=== PATIENT | female | born 1990 | race Caucasian/White ===

== ENCOUNTER 2020-01-01 16:11 | Emergency (ER) | payer OTHER ==
[2020-01-01 16:38] LABS: BILIRUBIN,URINE NEGATIVE (NEGATIVE); GLUCOSE, URINE (UA) NEGATIVE (NEGATIVE); KETONES,URINE (UA) NEGATIVE (NEGATIVE); LEUKOCYTE ESTERASE, URINE NEGATIVE (NEGATIVE); NITRITE,URINE NEGATIVE (NEGATIVE); OCCULT BLOOD,URINE NEGATIVE (NEGATIVE); PROTEIN,URINE NEGATIVE (NEGATIVE); UROBILINOGEN,URINE 0.2 (NORMAL) E.U./dL (NORMAL)
[2020-01-01 16:39] LABS: BASOPHILS # (AUTO) 0.1 10^3/uL (0.0-0.1); BASOPHILS % (AUTO) 0.8 %; EOSINOPHILS # (AUTO) 0.2 10^3/uL (0.0-0.7); EOSINOPHILS % (AUTO) 1.7 %; HGB - HEMOGLOBIN 14.5 g/dL (12.0-16.0); LYMPHOCYTES # (AUTO) 2.2 10^3/uL (1.5-3.5); LYMPHOCYTES % (AUTO) 24.6 %; MEAN CORPUSCULAR HEMOGLOBIN 32.2 pg (27.0-31.0); MEAN CORPUSCULAR HGB CONC 34.4 g/dL (32.0-36.0); MEAN CORPUSCULAR VOLUME 93.6 fL (81.0-99.0); MEAN PLATELET VOLUME 9.6 fL (7.9-10.8); MONOCYTES # (AUTO) 0.7 10^3/uL (0.0-1.0); MONOCYTES % (AUTO) 7.7 %; NEUTROPHILS # (AUTO) 5.7 10^3/uL (1.5-6.6); NEUTROPHILS % (AUTO) 64.9 %; PLT - PLATELET COUNT 203 10^3/uL (130-450); RED CELL DISTRIBUTION WIDTH 12.6 % (12.0-15.0); WHITE BLOOD COUNT 8.8 x10^3/uL (4.8-10.8)
[2020-01-01 16:41] LABS: CLARITY,URINE CLEAR (CLEAR)
[2020-01-01 16:42] LABS: HCG UR QUAL POSITIVE
[2020-01-01 16:51] LABS: ALBUMIN 4.5 g/dL (3.2-5.5); ALBUMIN/GLOBULIN RATIO 1.6 (1.0-2.2); BILIRUBIN,TOTAL 0.4 mg/dL (0.2-1.0); CALCIUM 9.1 mg/dL (8.5-10.3); CREATININE 0.5 mg/dL (0.4-1.0); TOTAL PROTEIN 7.4 g/dL (6.7-8.2)
--- NOTE | 2020-01-01 17:58 | ED Physician Documentation ---
PD HPI FEMALE - Stated complaint Stated Complaint: ABD CRAMPING 6 WEEKS PREG - Chief complaint Chief Complaint: Abd Pain - History obtained from History obtained from: Patient - Additional information Additional information: Patient comes emergency department complaining of right pelvic pain. She states she is about 6 weeks . She is not bleeding and has noticed only a mild amount of clear discharge from her vagina. She states that she has a history of tubal ligation in 2011 which was reversed within the last year because she and her significant other wanted to try to conceive. She states she has had 2 other successful pregnancies prior to her tubal ligation. Patient states that only her right tube is patent and that the left one never did reopen. She states that her last menstrual period was November 19. Patient states she is otherwise healthy. She denies any vomiting though she has been mildly nauseated. No dysuria. No other complaints at this time Review of Systems Ten Systems: 10 systems reviewed and negative Constitutional: reports: Reviewed and negative Eyes: reports: Reviewed and negative Ears: reports: Reviewed and negative Nose: reports: Reviewed and negative Throat: reports: Reviewed and negative Cardiac: reports: Reviewed and negative Respiratory: reports: Reviewed and negative GI: reports: Abdominal Pain, Nausea : reports: Missed period, Now EGA Skin: reports: Reviewed and negative Musculoskeletal: reports: Reviewed and negative Neurologic: reports: Reviewed and negative Psychiatric: reports: Reviewed and negative Endocrine: reports: Reviewed and negative Immunocompromised: reports: Reviewed and negative PD PAST MEDICAL HISTORY - Past Medical History Past Medical History: No - Past Surgical History Past Surgical History: Yes 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, Other - Allergies Allergies/Adverse Reactions: Allergies Allergy/AdvReac Type Severity Reaction Status Date / Time No Known Drug Allergies Allergy Verified 01/01/20 16:19 - Social History Does the pt smoke?: No Smoking Status: Never smoker Does the pt drink ETOH?: No Does the pt have substance abuse?: No - Immunizations Immunizations are current?: Yes PD ED PE NORMAL - Vitals Vital signs reviewed: Yes - General General: Alert and oriented X 3, No acute distress - HEENT HEENT: Atraumatic, PERRL, EOMI, Moist mucous membranes - Neck Neck: Supple, no meningeal sign - Cardiac Cardiac: RRR, No murmur, Strong equal pulses - Respiratory Respiratory: No respiratory distress, Clear bilaterally - Abdomen Abdomen: Soft, Non distended, Other (Patient has tenderness in her right pelvis. No rebound or guarding.) - Derm Derm: Warm and dry - Extremities Extremities: No deformity - Neuro Neuro: Alert and oriented X 3 - Psych Psych: Normal mood, Normal affect Results - Vitals Vitals: Vital Signs - 24 hr 01/01/20 01/01/20 01/01/20 16:19 18:13 19:47 Temperature 36.5 C Heart Rate 62 60 63 Respiratory 14 15 16 Rate Blood Pressure 130/73 116/77 100/72 O2 Saturation 100 100 99 01/01/20 20:23 Temperature Heart Rate 63 Respiratory 16 Rate Blood Pressure 106/82 H O2 Saturation 99 Oxygen O2 Source Room air - Labs Labs: Laboratory Tests 01/01/20 01/01/20 01/01/20 16:33 16:33 16:33 WBC 8.8 RBC 4.50 Hgb 14.5 Hct 42.1 MCV 93.6 MCH 32.2 H MCHC 34.4 RDW 12.6 Plt Count 203 MPV 9.6 Neut # (Auto) 5.7 Lymph # (Auto) 2.2 [place] # (Auto) 0.7 Eos # (Auto) 0.2 Baso # (Auto) 0.1 Absolute Nucleated RBC 0.00 Nucleated RBC % 0.0 Sodium 136 Potassium 3.5 Chloride 104 Carbon Dioxide 24 Anion Gap 8.0 BUN 9 Creatinine 0.5 Estimated GFR (MDRD) 144 Glucose 96 Calcium 9.1 Total Bilirubin 0.4 AST 16 ALT 16 Alkaline Phosphatase 45 Total Protein 7.4 Albumin 4.5 Globulin 2.9 Albumin/Globulin Ratio 1.6 Lipase 40 HCG, Quant 02327.00 Urine Color Urine Clarity Urine pH Ur Specific [place] Urine Protein Urine Glucose (UA) Urine Ketones Urine Occult Blood Urine Nitrite Urine Bilirubin Urine Urobilinogen Ur Leukocyte Esterase Ur Microscopic Review Urine Culture Comments Urine HCG, Qual 01/01/20 01/01/20 16:35 16:35 WBC RBC Hgb Hct MCV MCH MCHC RDW Plt Count MPV Neut # (Auto) Lymph # (Auto) [place] # (Auto) Eos # (Auto) Baso # (Auto) Absolute Nucleated RBC Nucleated RBC % Sodium Potassium Chloride Carbon Dioxide Anion Gap BUN Creatinine Estimated GFR (MDRD) Glucose Calcium Total Bilirubin AST ALT Alkaline Phosphatase Total Protein Albumin Globulin Albumin/Globulin Ratio Lipase HCG, Quant Urine Color YELLOW Urine Clarity CLEAR Urine pH 6.0 Ur Specific [place] <=1.005 <=1.005 Urine Protein NEGATIVE Urine Glucose (UA) NEGATIVE Urine Ketones NEGATIVE Urine Occult Blood NEGATIVE Urine Nitrite NEGATIVE Urine Bilirubin NEGATIVE Urine Urobilinogen 0.2 (NORMAL) Ur Leukocyte Esterase NEGATIVE Ur Microscopic Review NOT INDICATED Urine Culture Comments NOT INDICATED Urine HCG, Qual POSITIVE - Rads (name of study) OB US Radiology: Final report received, See rad report PD MEDICAL DECISION MAKING - ED course Complexity details: reviewed results, re-evaluated patient, considered differential, d/w patient ED course: Patient was worked up with serum Quantitative hCG and with pelvic ultrasound. She was found to have a viable 6-wk IUP. I have discussed the findings with the pt. She already has OB follow-up, and should keep this. Her R pelvic pain may be due to adhesions from her previous surgeries. No emergent cause of it has been found today. We have discussed the usual indications for return. Departure - Departure Disposition: 01 Home, Self Care Clinical Impression: , Abdominal pain Condition: Good Instructions: ED Pelvic Pain UKO, ED Care Comments: Your ultrasound shows a live, 6-week fetus in your uterus. The baby has a good heart rate at this time, and there is no evidence of any problem with the . Is not clear what is causing your right-sided pelvic pain, but this may be due to scar tissue from your various procedures, along with traction from your uterus which is becoming increasingly heavy. Please follow-up with your PHYSICIAN UNDERWRITER, as you are scheduled to do. Discharge Date/Time: 01/01/20 20:23
--- NOTE | 2020-01-01 20:10 | Ultrasound Report ---
Reason: Evaluation ER Procedure Date: 01/01/2020 Accession Number: [id number] / [id number] Procedure: US - OB First Trimester CPT Code: Final Report FULL RESULT: EXAM: FIRST TRIMESTER OBSTETRIC ULTRASOUND (Less than 11 weeks) EXAM DATE: 01/01/2020 07:51 PM. CLINICAL HISTORY: Writing so pain. History of tubal reversal. LMP: 11/19/2019. COMPARISONS: None. TECHNIQUE: Transabdominal and transvaginal ultrasound examination with static image documentation. CLINICAL DATES: EGA 6 weeks 1 day with SANJEEV 08/25/2020 based on LMP. ASSESSMENT: Gestational Sac: Single intrauterine. Mean gestational sac diameter: 19 mm = 6 weeks 6 days. Embryo: CRL (crown-rump length) 4 mm = 6 weeks 0 days. Cardiac activity: 113 beats per minute. Yolk sac: 3 mm. Amniotic fluid: Not accurately assessed at this gestational age. Early placenta: Not visible at this gestational age. Other: Small subchorionic hemorrhage.. MATERNAL STRUCTURES: Uterus: Anteverted. Unremarkable. Cervix: Closed. Right Ovary/Adnexa: The ovary measures 3.6 x 2.5 x 3.4 cm, volume 16.1 cc. Unremarkable. Left Ovary/Adnexa: The ovary measures 3.1 x 2.6 x 3.8 cm, volume 15.6 cc. Left corpus luteal cyst. Free Fluid: None. Other: None. IMPRESSION: 1. Single viable intrauterine at EGA 6 weeks 0 days with SANJEEV 08/26/2020 based on crown-rump length, which is concordant with clinical dates. 2. Assigned dating is SANJEEV 08/25/2020 based on LMP. 3. Small subchorionic hemorrhage. RADIA
[2020-01-01 20:24] VITALS: BP 106/82
== END 2020-01-01 20:23 | disposition home or self-care (01) ==
LOC: ED 16:11
DX: O99.89 Other specified diseases and conditions complicating pregnancy, childbirth and the puerperium (principal); R10.9 Unspecified abdominal pain; Z3A.01 Less than 8 weeks gestation of pregnancy
CPT/HCPCS: 36415; 76801; 76817; 80053; 81001; 81003; 81025; 83690; 84702; 85025; 87086; 99284

== ENCOUNTER 2020-02-25 12:23 | Outpatient (CLI) | payer OTHER ==
[2020-02-25 17:45] LABS: BASOPHILS % (AUTO) 0.6 %; EOSINOPHILS # (AUTO) 0.1 10^3/uL (0.0-0.7); EOSINOPHILS % (AUTO) 1.6 %; LYMPHOCYTES # (AUTO) 1.4 10^3/uL (1.5-3.5); LYMPHOCYTES % (AUTO) 20.4 %; MEAN CORPUSCULAR HEMOGLOBIN 30.8 pg (27.0-31.0); MEAN CORPUSCULAR HGB CONC 32.4 g/dL (32.0-36.0); MEAN PLATELET VOLUME 10.6 fL (7.9-10.8); MONOCYTES # (AUTO) 0.5 10^3/uL (0.0-1.0); MONOCYTES % (AUTO) 6.9 %; NEUTROPHILS # (AUTO) 4.9 10^3/uL (1.5-6.6); NEUTROPHILS % (AUTO) 70.1 %; PLT - PLATELET COUNT 213 10^3/uL (130-450); RED BLOOD COUNT 4.22 10^6/uL (4.20-5.40); RED CELL DISTRIBUTION WIDTH 13.3 % (12.0-15.0)
== END 2020-02-25 23:59 | disposition home or self-care (01) ==
LOC: LAB.WCP 12:23
PROVIDERS: ATTEND Advanced Practice Midwife
DX: Z34.80 Encounter for supervision of other normal pregnancy, unspecified trimester (principal)
CPT/HCPCS: 36415; 85025

== ENCOUNTER 2020-03-27 09:54 | Outpatient (CLI) | payer OTHER ==
--- NOTE | 2020-03-27 23:01 | Ultrasound Report ---
Reason: SUPERVISION NORMAL Procedure Date: 03/27/2020 Accession Number: [id number] / [id number] Procedure: US - OB Detailed Eval CPT Code: Final Report FULL RESULT: PROCEDURE: OB Detailed Eval INDICATIONS: SUPERVISION NORMAL OUTSIDE/PRIOR DATING DATA: Last menstrual period (LMP): 11/19/2019. LMP-based estimated date of delivery (SANJEEV): 08/25/2020. First dating scan (date and location): 01/01/2020. Estimated date of delivery (SANJEEV) from first dating scan: 08/26/2020. TECHNIQUE: Real-time scanning was performed of the fetus, with image documentation and biometric measurements. Endovaginal scanning: Not performed. COMPARISON: 01/01/2020. FINDINGS: General: A single living intrauterine gestation is present. Presentation: Variable. Placenta: Placental position is posterior, without previa. Amniotic fluid index: 13.9 cm, normal for gestational age. heart rate: 132 beats per minute. Maternal cervical canal: 4.4 cm long; normal length is 2.5 cm or more. biometrics: Biparietal diameter: 4.2 cm. 18 weeks 5 days. Head circumference: 15.6 cm. 18 weeks 3 days. Abdominal circumference: 13.2 cm. 18 weeks 5 days. Femur length: 2.7 cm. 18 weeks 2 days. Estimated gestational age from initial scan: 18 weeks 3 days. Composite gestational age from present scan: 18 weeks 3 days. Estimated weight and percentile: 243 g, 50th percentile. Measurement variability in biometric dating: +/- 10 days from 12-20 weeks gestation, +/- 2 weeks from 20-30 weeks gestation, +/- 3 weeks at 30 weeks gestation or later. Anatomic survey: Neuro: Ventricles are normal at less than 10 mm. Cisterna magna is normal at 3-11 mm. Cerebellum is normal in size and morphology. Bilateral choroid plexus cysts measuring 4 mm. Nuchal skin fold: Normal at less than 6 mm between 14 and 20 weeks gestational age. Face: Nose and lips, facial profile are normal. Spine: No evidence for spina bifida. Heart: 4-chambered heart is present, with normal ventricular outflow tracts. Diaphragm: Diaphragm is intact. Stomach: Left-sided stomach is present. Kidneys: No hydronephrosis. Normal is less than 5 mm in 2nd trimester, less than 7 mm in 3rd trimester. Cord: 3 vessel cord has orthotopic insertion. Bladder: Normal in size. Extremities: All 4 extremities are visualized. Small left ovarian cyst. IMPRESSION: 1. [place] living intrauterine at 18 weeks 3 days based on today's ultrasound. This is concordant with the first trimester ultrasound. There is expected interval growth. 2. Normal placenta and amniotic fluid. 3. Small bilateral choroid plexus cysts. This is a soft marker for aneuploidy. Complete anatomic survey. Reviewed by: Rehan Sanchez MD on 03/27/2020 11:00 PM PDT Approved by: Rehan Sanchez MD on 03/27/2020 11:00 PM PDT Station ID: [id number]
== END 2020-03-27 09:55 | disposition home or self-care (01) ==
LOC: DI 09:54
PROVIDERS: ATTEND Advanced Practice Midwife
DX: O35.0XX1 Maternal care for (suspected) central nervous system malformation in fetus, fetus 1 (principal)
CPT/HCPCS: 76811

== ENCOUNTER 2020-05-08 14:17 | Outpatient (CLI) | payer OTHER ==
[2020-05-08 14:39] VITALS: BP 119/68
[2020-05-08 14:41] LABS: BILIRUBIN,URINE NEGATIVE (NEGATIVE); GLUCOSE, URINE (UA) NEGATIVE (NEGATIVE); KETONES,URINE (UA) NEGATIVE (NEGATIVE); LEUKOCYTE ESTERASE, URINE NEGATIVE (NEGATIVE); NITRITE,URINE NEGATIVE (NEGATIVE); OCCULT BLOOD,URINE NEGATIVE (NEGATIVE); PROTEIN,URINE NEGATIVE (NEGATIVE); UROBILINOGEN,URINE 0.2 (NORMAL) E.U./dL (NORMAL)
[2020-05-08 14:47] LABS: BACTERIA,URINE None Seen /HPF (None Seen); CLARITY,URINE CLEAR (CLEAR); RBC,URINE None Seen /HPF (0-5); SQUAMOUS EPITHELIAL CELL,UR NONE SEEN (<= Few)
--- NOTE | 2020-05-08 17:21 | Ultrasound Report ---
PROCEDURE: OB Limited INDICATIONS: decrease FM OUTSIDE/PRIOR DATING DATA: Last menstrual period (LMP): 11/20/2019. LMP-based estimated date of delivery (SANJEEV): 08/25/2020. First dating scan (date and location): 01/01/2020. Estimated date of delivery (SANJEEV) from first dating scan: 08/26/2020. TECHNIQUE: Real-time scanning was performed of the fetus, with image documentation. COMPARISON: OB ultrasound 03/27/2020 FINDINGS: A single living intrauterine gestation is present. Presentation: Breech Placenta: Placental position is posterior, without previa. Amniotic fluid index: 18.0 cm, 77th percentile for gestational age. Largest pocket 5.1 cm heart rate: 136 beats per minutes. Maternal cervical canal: 4.1 cm long; normal length is 2.5 cm or more. Estimated gestational age from initial scan: 24 weeks 3 days. IMPRESSION: 1. Single live intrauterine as above with good movement. Reviewed by: Giselle Agarwal MD on 05/08/2020 5:19 PM PDT Approved by: Giselle Agarwal MD on 05/08/2020 5:19 PM PDT Station ID: [id number]
--- NOTE | 2020-05-08 23:55 | PROVIDER PROGRESS NOTE ---
Subjective - Subjective Subjective: Patient asked to come in when she called clinic with lower abdominal cramping. Cramping worsens when she stands. Is constant. No contractions. No bleeding or leaking of water. Has had less movement than typical. AVSS Alert, NAD Abd soft, nt/nd SVE closed/thick/high FFN neg UA neg Wet mount: clue cells MAXIMO: normal NST category 1, toco neg A/P: 29yo in 2nd trimester with BV and likely associated cramping. Will treat with po metronidazole. Call/RTC PRN worsening. Also with chronic low back pain in the past 2w--discussed can do trial of PT if she'd like. Chronic constipation, recommended starting colace. Follow up routine appointment unless getting worse. wellbeing reassuring with normal NST/MAXIMO. Objective - Lab Results Other Labs: Lab Results x24hrs 05/08/20 05/08/20 Range/Units 15:03 14:33 Urine Color LT. YELLOW Urine Clarity CLEAR (CLEAR) Urine pH 7.0 (5.0-7.5) PH Ur Specific [place] 1.010 (1.002-1.030) Urine Protein NEGATIVE (NEGATIVE) mg/dL Urine Glucose (UA) NEGATIVE (NEGATIVE) mg/dL Urine Ketones NEGATIVE (NEGATIVE) mg/dL Urine Occult Blood NEGATIVE (NEGATIVE) Urine Nitrite NEGATIVE (NEGATIVE) Urine Bilirubin NEGATIVE (NEGATIVE) Urine Urobilinogen 0.2 (NORMAL) (NORMAL) E.U./dL Ur Leukocyte Esterase NEGATIVE (NEGATIVE) Urine RBC None Seen (0-5) /HPF Urine WBC 0-3 (0-5) /HPF Ur Squamous Epith Cells NONE SEEN (<= Few) Urine Bacteria None Seen (None Seen) /HPF Urine Culture Comments NOT INDICATED Fibronectin NEGATIVE (NEGATIVE)
== END 2020-05-08 17:23 | disposition home or self-care (01) ==
LOC: WFO 14:17 → FBP 14:18 → WFO 17:23
PROVIDERS: ATTEND Obstetrics & Gynecology
DX: O23.592 Infection of other part of genital tract in pregnancy, second trimester (principal); B96.89 Other specified bacterial agents as the cause of diseases classified elsewhere; O36.8120 Decreased fetal movements, second trimester, not applicable or unspecified
CPT/HCPCS: 76815; 81001; 82731; 87086; 87210; 99214

== ENCOUNTER 2020-06-09 19:04 | Outpatient (CLI) | payer OTHER | END 2020-06-09 19:05 | disposition home or self-care (01) | LOC: DI 19:04 | PROVIDERS: ATTEND Advanced Practice Midwife | DX: Z34.80 Encounter for supervision of other normal pregnancy, unspecified trimester (principal) | CPT/HCPCS: 76816 ==

== ENCOUNTER 2020-07-22 11:43 | Outpatient (CLI) | payer OTHER ==
[2020-07-22 12:44] LABS: RUPTURE OF MEMBRANES PLUS NEGATIVE (NEGATIVE)
[2020-07-22 13:16] VITALS: BP 113/54
[2020-07-22 13:16] LABS: BILIRUBIN,URINE NEGATIVE (NEGATIVE); GLUCOSE, URINE (UA) NEGATIVE (NEGATIVE); KETONES,URINE (UA) NEGATIVE (NEGATIVE); LEUKOCYTE ESTERASE, URINE NEGATIVE (NEGATIVE); NITRITE,URINE NEGATIVE (NEGATIVE); OCCULT BLOOD,URINE NEGATIVE (NEGATIVE); PH,URINE 6.5 PH (5.0-7.5); PROTEIN,URINE NEGATIVE (NEGATIVE); UROBILINOGEN,URINE 0.2 (NORMAL) E.U./dL (NORMAL)
--- NOTE | 2020-07-22 13:31 | PROVIDER PROGRESS NOTE ---
- HPI Chief Complaint: Leakage of vaginal fluid Current : Current EDU 08/25/20 Gestation 35 Weeks and 1 Days 5 Para 2 Vital Signs Temperature 37.2 C 07/22/20 11:54 Heart Rate 81 07/22/20 11:54 Respiratory Rate 17 07/22/20 11:54 Blood Pressure 110/96 H 07/22/20 11:54 O2 Saturation 99 07/22/20 11:54 Temperature 37.2 C 07/22/20 11:54 Heart Rate 81 07/22/20 11:54 Respiratory Rate 17 07/22/20 11:54 Blood Pressure 113/54 L 07/22/20 12:17 O2 Saturation 99 07/22/20 11:54 - Procedures OB Procedure Performed: NST - Plan Plan: S: Joy presents to L&D with reports of a leaking of clear thin fluid since 1999 yesterday. She Also reports ongoing gushes with voiding, not requiring a pad. She reports 7/10 pain with low menstrual like cramps, but no contractions "Maybe Yonas Mcmullen." She does report ongoing nausea/heartburn, but reports is at her baseline. O: 30yo at 35.0wks gestation No obvious distress FHTs moderate variability, accels, no decels Uterus soft, nontender, no contractions ROM+ negative UA- sent Affirm-sent FFN- sent A: 30yo at 35.0wks gestation, without rupture of membranes Not in labor. FHTs Cat I Rule out other source of infection/cramping P:Discharge to home with labor precautions Follow up at regularly scheduled visits
[2020-07-22 13:35] LABS: CLARITY,URINE CLEAR (CLEAR)
[2020-07-22 20:22] LABS: CANDIDA GROUP DNA NEGATIVE (NEGATIVE); CANDIDA KRUSEI DNA NEGATIVE (NEGATIVE); TRICHOMONAS VAGINALIS DNA NEGATIVE (NEGATIVE)
== END 2020-07-22 13:28 | disposition home or self-care (01) ==
LOC: WFO 11:43 → FBP 11:45 → WFO 13:28
PROVIDERS: ATTEND Advanced Practice Midwife
DX: O99.89 Other specified diseases and conditions complicating pregnancy, childbirth and the puerperium (principal); N89.8 Other specified noninflammatory disorders of vagina; Z3A.35 35 weeks gestation of pregnancy; R10.30 Lower abdominal pain, unspecified; R11.0 Nausea; R12 Heartburn
CPT/HCPCS: 81001; 81003; 82731; 84112; 87086; 87661; 87801; 99214

== ENCOUNTER 2020-07-27 08:00 | Outpatient (CLI) | payer OTHER | END 2020-07-27 23:59 | disposition home or self-care (01) | LOC: LAB.R 08:00 | PROVIDERS: ATTEND Advanced Practice Midwife | DX: Z36.85 Encounter for antenatal screening for Streptococcus B (principal); Z34.80 Encounter for supervision of other normal pregnancy, unspecified trimester | CPT/HCPCS: 87797 ==

== ENCOUNTER 2020-08-24 10:04 | Outpatient (CLI) | payer OTHER ==
--- NOTE | 2020-08-24 11:09 | Labor Flowsheet ---
Labor Flowsheet Datetime Report Generated by CPN: 08/24/2020 11:09 Datetime: 08/24/2020 10:36 VITAL SIGNS NBP Sys/Brionna/Mean (mmHg): 135 : 66 : 92 Pulse: 91 Datetime: 08/21/2020 19:25 SpO2 (%): 99 Datetime: 08/21/2020 12:09 Membranes Ruptured Date/Time: 08/21/2020 11:17 Amniotic Fluid Odor: Normal Datetime: 08/21/2020 12:01 COMMUNICATION LaborFlag: Labor Datetime: 08/21/2020 11:39 MEDICATIONS Medication Comments: methergine 0.2mg given IM Right vastus lateralis Datetime: 08/21/2020 11:18 STAGE 2 Pushing: Involuntary Pushing Pushing Progress: Presenting Part Visible Stage 2 Comments: Rapid delivery Datetime: 08/21/2020 11:16 VAGINAL EXAM Membrane Status: Ruptured Membranes Rupture Method: Spontaneous Amniotic Fluid Color: Heavy Meconium Amniotic Fluid Amount: Large Membrane Comments: SROM at delivery of body
== END 2020-08-24 10:45 | disposition home or self-care (01) ==
LOC: WFO 10:04 → FBP 10:09 → WFO 10:45
PROVIDERS: ATTEND Pediatrics
DX: O92.79 Other disorders of lactation (principal)
CPT/HCPCS: 99402

== ENCOUNTER 2021-10-05 11:19 | Outpatient (CLI) | payer OTHER ==
--- NOTE | 2021-10-05 14:32 | Ultrasound Report ---
PROCEDURE: OB First Trimester INDICATIONS: SUPERVISION , NORMAL OUTSIDE/PRIOR DATING DATA: Last menstrual period (LMP): 07/25/2021. LMP-based estimated date of delivery (SANJEEV): 05/01/2022. First dating scan (date and location): 10/05/2021. Estimated date of delivery (SANJEEV) from first dating scan: 05/03/2022. TECHNIQUE: Real-time scanning was performed of the fetus and maternal pelvic organs, with image documentation. COMPARISON: None. FINDINGS: Embryo: Intrauterine gestational sac and yolk sac, and pole are seen. The crown-rump length me asures 3.1 cm, consistent with a gestational age of 10 weeks 0 days. Heart rate: 173 bpm. Measurement variability in dating: +/- 4 weeks by LMP, +/- 7 days by mean sac diameter (use before 6 weeks gestation if crown-rump length not able to be measured), +/- 5 days by crown-rump length (6-12 weeks gestation). Maternal organs: Ovaries are within normal limits. IMPRESSION: Single live intrauterine with measurements resulting in an estimated gestational age of 10 weeks 0 days, giving an ultrasound SANJEEV of 05/03/2022. Reviewed by: Juliano Garcia MD on 10/05/2021 2:31 PM PST Approved by: Juliano Garcia MD on 10/05/2021 2:31 PM PST Station ID: [id number]
== END 2021-10-05 11:20 | disposition home or self-care (01) ==
LOC: DI 11:19
PROVIDERS: ATTEND Nurse Practitioner Obstetrics & Gynecology
DX: Z34.81 Encounter for supervision of other normal pregnancy, first trimester (principal); Z3A.10 10 weeks gestation of pregnancy; Z36.89 Encounter for other specified antenatal screening
CPT/HCPCS: 36415; 81001; 85025; 86592; 86762; 86787; 86803; 86850; 86900; 86901; 87086; 87340; 87389

== ENCOUNTER 2021-10-05 11:49 | Outpatient (CLI) | payer OTHER ==
[2021-10-05 12:11] LABS: BASOPHILS # (AUTO) 0.1 10^3/uL (0.0-0.1); BASOPHILS % (AUTO) 0.9 %; EOSINOPHILS # (AUTO) 0.1 10^3/uL (0.0-0.7); EOSINOPHILS % (AUTO) 0.9 %; HCT - HEMATOCRIT 43.9 % (37.0-47.0); HGB - HEMOGLOBIN 14.6 g/dL (12.0-16.0); LYMPHOCYTES # (AUTO) 1.7 10^3/uL (1.5-3.5); LYMPHOCYTES % (AUTO) 26.5 %; MEAN CORPUSCULAR HEMOGLOBIN 30.5 pg (27.0-31.0); MEAN CORPUSCULAR HGB CONC 33.3 g/dL (32.0-36.0); MEAN CORPUSCULAR VOLUME 91.8 fL (81.0-99.0); MEAN PLATELET VOLUME 10.5 fL (7.9-10.8); MONOCYTES # (AUTO) 0.4 10^3/uL (0.0-1.0); MONOCYTES % (AUTO) 6.2 %; NEUTROPHILS # (AUTO) 4.3 10^3/uL (1.5-6.6); NEUTROPHILS % (AUTO) 65.3 %; PLT - PLATELET COUNT 220 10^3/uL (130-450); RED BLOOD COUNT 4.78 10^6/uL (4.20-5.40); RED CELL DISTRIBUTION WIDTH 13.4 % (12.0-15.0); WHITE BLOOD COUNT 6.6 x10^3/uL (4.8-10.8)
[2021-10-05 13:09] LABS: BILIRUBIN,URINE NEGATIVE (NEGATIVE); GLUCOSE, URINE (UA) NEGATIVE (NEGATIVE); KETONES,URINE (UA) NEGATIVE (NEGATIVE); LEUKOCYTE ESTERASE, URINE NEGATIVE (NEGATIVE); NITRITE,URINE NEGATIVE (NEGATIVE); OCCULT BLOOD,URINE NEGATIVE (NEGATIVE); PH,URINE 6.5 PH (5.0-7.5); PROTEIN,URINE NEGATIVE (NEGATIVE); UROBILINOGEN,URINE 0.2 (NORMAL) E.U./dL (NORMAL)
[2021-10-05 13:29] LABS: BACTERIA,URINE None Seen /HPF (None Seen); CLARITY,URINE CLEAR (CLEAR); RBC,URINE None Seen /HPF (0-5); SQUAMOUS EPITHELIAL CELL,UR FEW Squamous (<= Few); WBC,URINE 0-3 /HPF (0-5)
[2021-10-06 12:50] LABS: HEPATITIS B SURFACE ANTIGEN NON-REACTIVE (NON-REACTIVE)
[2021-10-06 13:01] LABS: HEPATITIS C ANTIBODY NON-REACTIVE (NON-REACTIVE)
[2021-10-06 14:47] LABS: HIV AG/AB 4TH GEN NON-REACTIVE (NON-REACTIVE)
== END 2021-10-05 11:50 | disposition home or self-care (01) ==
LOC: LAB 11:49
PROVIDERS: ATTEND Nurse Practitioner Obstetrics & Gynecology
DX: Z34.80 Encounter for supervision of other normal pregnancy, unspecified trimester (principal); Z36.89 Encounter for other specified antenatal screening
CPT/HCPCS: 36415; 81001; 85025; 86592; 86762; 86787; 86803; 86850; 86900; 86901; 87086; 87340; 87389

== ENCOUNTER 2021-10-13 08:00 | Outpatient (CLI) | payer OTHER ==
[2021-10-13 22:15] LABS: CHLAMYDIA TRACHOMATIS DNA NEGATIVE (NEGATIVE); TRICHOMONAS VAGINALIS DNA NEGATIVE (NEGATIVE)
[2021-10-13 22:23] LABS: NEISSERIA GONORRHOEAE DNA POSITIVE (NEGATIVE)
== END 2021-10-13 23:59 | disposition home or self-care (01) ==
LOC: LAB.WC 08:00
PROVIDERS: ATTEND Nurse Practitioner Obstetrics & Gynecology
DX: Z34.80 Encounter for supervision of other normal pregnancy, unspecified trimester (principal)
CPT/HCPCS: 87491; 87591; 87661

== ENCOUNTER 2021-10-20 10:00 | Outpatient (CLI) | payer OTHER ==
[2021-10-21 00:41] LABS: CHLAMYDIA TRACHOMATIS DNA NEGATIVE (NEGATIVE); NEISSERIA GONORRHOEAE DNA NEGATIVE (NEGATIVE); TRICHOMONAS VAGINALIS DNA NEGATIVE (NEGATIVE)
== END 2021-10-20 23:59 | disposition home or self-care (01) ==
LOC: LAB 10:00
PROVIDERS: ATTEND Obstetrics & Gynecology
DX: Z11.3 Encounter for screening for infections with a predominantly sexual mode of transmission (principal)
CPT/HCPCS: 87491; 87591; 87661

== ENCOUNTER 2021-11-12 08:00 | Outpatient (CLI) | payer OTHER ==
[2021-11-12 20:53] LABS: CHLAMYDIA TRACHOMATIS DNA NEGATIVE (NEGATIVE); NEISSERIA GONORRHOEAE DNA NEGATIVE (NEGATIVE); TRICHOMONAS VAGINALIS DNA NEGATIVE (NEGATIVE)
== END 2021-11-12 23:59 | disposition home or self-care (01) ==
LOC: LAB.WC 08:00
PROVIDERS: ATTEND Obstetrics & Gynecology
DX: Z11.3 Encounter for screening for infections with a predominantly sexual mode of transmission (principal)
CPT/HCPCS: 87491; 87591; 87661

== ENCOUNTER 2021-12-07 15:26 | Outpatient (CLI) | payer OTHER ==
--- NOTE | 2021-12-07 20:32 | Ultrasound Report ---
PROCEDURE: OB Detailed Eval INDICATIONS: SUPERVISION OF OUTSIDE/PRIOR DATING DATA: Last menstrual period (LMP): 07/25/2021. LMP-based estimated date of delivery (SANJEEV): 05/01/2022. First dating scan (date and location): 10/05/2021. Estimated date of delivery (SANJEEV) from first dating scan: 05/03/2022. The below data below was generated using the ultrasound SANJEEV of 05/03/2022 TECHNIQUE: Real-time scanning was performed of the fetus, with image documentation and biometric measurements. Endovaginal scanning: Not performed. COMPARISON: OB ultrasound 10/05/2021 FINDINGS: General: A single living intrauterine gestation is present. Presentation: Variable Placenta: Placental position is anterior, without previa. Amniotic fluid index: 15.8 cm, normal for gestational age. Deepest vertical pocket 6.2 cm. heart rate: 137 beats per minute. Maternal cervical canal: 3.9 cm long; normal length is 2.5 cm or more. biometrics: Biparietal diameter: 4.56 cm, 19 weeks 5 days Head circumference: 16.57 cm, 19 weeks 2 days Abdominal circumference: 13.6 cm, 19 weeks 1 day Femur length: 2.75 cm, 18 weeks 3 days Estimated gestational age from initial scan: 19 weeks 0 days Composite gestational age from present scan: 19 weeks 1 day Estimated weight and percentile: 260 g, 36th percentile Measurement variability in biometric dating: +/- 10 days from 12-20 weeks gestation, +/- 2 weeks from 20-30 weeks gestation, +/- 3 weeks at 30 weeks gestation or later. Anatomic survey: Neuro: Ventricles are normal at less than 10 mm. Cisterna magna is normal at 3-11 mm. Cerebellum i s normal in size and morphology. Nuchal skin fold: Normal at less than 6 mm between 14 and 20 weeks gestational age. Face: Facial profile are normal. Orbits appear normal. A defect is seen in the lip and palate to one side of the midline that is suspicious for closed lip/cleft palate. Spine: No evidence for spina bifida. Heart: 4-chambered heart is present, with normal ventricular outflow tracts. Diaphragm: Diaphragm is intact. Stomach: Stomach is not well-visualized. Kidneys: No hydronephrosis. Normal is less than 5 mm in 2nd trimester, less than 7 mm in 3rd trimester. Cord: 3 vessel cord has orthotopic insertion. Bladder: Normal in size. Extremities: All 4 extremities are visualized. IMPRESSION: 1.Single live intrauterine with appropriate interval growth. 2.Findings suspicious for unilateral cleft lip/cleft palate. Recommend follow-up. 3.Fluid-filled stomach is not well seen, which limits evaluation for heterotaxy. Recommend attention on follow-up exam. 4.Otherwise, normal anatomic survey. Reviewed by: Juliano Garcia MD on 12/07/2021 8:31 PM PST Approved by: Juliano Garcia MD on 12/07/2021 8:31 PM PST Station ID: [id number]
== END 2021-12-07 15:27 | disposition home or self-care (01) ==
LOC: DI 15:26
PROVIDERS: ATTEND Obstetrics & Gynecology
DX: Z34.82 Encounter for supervision of other normal pregnancy, second trimester (principal); Z36.89 Encounter for other specified antenatal screening